=== PATIENT | male | born 1985 ===

== ENCOUNTER 2017-12-25 10:10 | Emergency (ER) | payer SELFPAY ==
[2017-12-25 10:13] VITALS: BMI 23.3
[2017-12-25 10:14] VITALS: BP 115/75; PULSE 82; RESP 16; TEMP 98.2; O2SAT 98
[2017-12-25] MEDS ORDERED: Naproxen 500 MG TAB PO ONE ×2 (10:49→11:10)
[2017-12-25] MEDS ORDERED: Tdap Vaccine 0.5 ml Vial (10-64 yrs) IM ONE ×2 (10:49→11:09)
--- NOTE | 2017-12-25 10:52 | ED PDOC ---
HPI: General Adult Time Seen by Provider: 12/25/17 10:38 Chief Complaint (Nursing): Back Pain History Per: Patient Additional Complaint(s): Pt. states earlier today he was at work carrying boxes when he slipped and fell going down the stairs. Reports landing on his R side lower back area. Also states he injured his L hand. Denies head injury, numbness, tingling, chest pain , SOB, flank pain. Past Medical History Reviewed: Historical Data, Nursing Documentation, Vital Signs Vital Signs: Last Vital Signs Temp 98.2 F 12/25/17 10:13 Pulse 82 12/25/17 10:13 Resp 16 12/25/17 10:13 BP 115/75 12/25/17 10:13 Pulse Ox 98 12/25/17 10:54 - Surgical History Surgical History: No Surg Hx - Family History Family History: States: No Known Family Hx - Home Medications Home Medications: Ambulatory Orders Medication Instructions Recorded Naproxen [Naprosyn] 500 mg PO BID PRN #10 tab 12/25/17 - Allergies Allergies/Adverse Reactions: Allergies Allergy/AdvReac Type Severity Reaction Status Date / Time No Known Allergies Allergy Verified 12/25/17 10:43 Review of Systems ROS Statement: Except As Marked, All Systems Reviewed And Found Negative Musculoskeletal: Positive for: Back Pain, Hand Pain Physical Exam - Physical Exam Appears: Positive for: Well, Non-toxic, No Acute Distress Head Exam: Positive for: ATRAUMATIC, NORMAL INSPECTION, NORMOCEPHALIC Skin: Positive for: Normal Color, Warm. Negative for: Rash Eye Exam: Positive for: Normal appearance Neck: Positive for: Normal, Painless ROM Cardiovascular/Chest: Positive for: Chest Non Tender Respiratory: Positive for: Normal Breath Sounds. Negative for: Respiratory Distress Pulses-Radial (L): 2+ Pulses-Radial (R): 2+ Gastrointestinal/Abdominal: Positive for: Normal Exam, Soft, Other (no ecchymosis). Negative for: Tenderness Back: Positive for: Muscle Spasm (R paralumbar area). Negative for: L CVA Tenderness, R CVA Tenderness, Vertebral Tenderness Extremity: Positive for: Capillary Refill (< 2 seconds of fingers on L hand), Other (L hand on dorsal superficial abrasion without swelling or deformity; R hip tenderness without deformity or pelvic tenderness) Neurologic/Psych: Positive for: Alert, Oriented, Gait (steady, unassisted) - ECG O2 Sat by Pulse Oximetry: 98 - Progress ED Course And Treament: Tetanus prophylaxis administered. Naproxen 500mg PO ordered. L hand, LS spine, R hip/pelvic x-ray: no fx Abrasion cleansed and dressed. Re-evaluation Time: 11:25 Condition: Re-examined, Improving,but remains with symptoms Disposition - Clinical Impression Clinical Impression: Hip injury, Back contusion, Hand injury - Patient ED Disposition Is Patient to be Admitted: No - Disposition Referrals: Nelda [facility] [place] [Outside] [facility] [Outside] Disposition: Routine/Home Disposition Time: 11:30 Condition: IMPROVED Prescriptions: Naproxen [Naprosyn] 500 mg PO BID PRN #10 tab PRN Reason: Pain Instructions: Low Back Pain in Adults, Skin Abrasions Forms: [facility] ED School/Work Excuse, [employer] (Paraguayan) Print Language: GERMAN
--- NOTE | 2017-12-25 11:31 | RAD ---
PROCEDURE: Left Hand Radiographs. HISTORY: trauma COMPARISON: None. FINDINGS: BONES: No acute fracture. JOINTS: Unremarkable. SOFT TISSUES: Normal. OTHER FINDINGS: None. IMPRESSION: No demonstrated fracture or dislocation.
--- NOTE | 2017-12-25 11:34 | RAD ---
PROCEDURE: Radiographs of the Lumbar Spine. HISTORY: trauma COMPARISON: No prior. FINDINGS: Limited evaluation due to obliquity of AP view. BONES: Normal alignment. No listhesis. No fracture. DISC SPACES: Unremarkable. OTHER FINDINGS: None. IMPRESSION: Unremarkable radiographs of the lumbar spine within the study limitations.
== END 2017-12-25 11:47 | disposition home or self-care (01) ==
LOC: H.ER 10:10
DX: S79.911A Unspecified injury of right hip, initial encounter (principal); W10.9XXA Fall (on) (from) unspecified stairs and steps, initial encounter; Y99.0 Civilian activity done for income or pay